=== PATIENT | male | born 1955 | race Caucasian/White ===

== ENCOUNTER 2023-02-08 11:06 | Outpatient (CLI) | payer MEDICARE, SELFPAY ==
--- NOTE | 2023-02-08 11:00 | RT.EKG_ITS ---
APPROVED REPORT Exam: Resting ECG Reason for Exam: chest discomfort Patient Location: O HR:59 bpm ECG Measurements Heart Rate 59 AXIS SD 145 P 30 QRSd 99 QRS 13 QT 407 T 41 QTc 404 Conclusion Sinus rhythm...normal P axis, V-rate 50- 99 Low voltage, extremity leads...all extremity leads <0.5mV Otherwise normal ECG
== END 2023-02-08 11:07 | disposition home or self-care (01) ==
LOC: DI.CM 11:06
PROVIDERS: Visit Provider Nurse Practitioner Family
DX: R07.89 Other chest pain (principal)
CPT/HCPCS: 93010

== ENCOUNTER 2023-02-24 03:11 | Outpatient (CLI) | payer MEDICARE, SELFPAY ==
[2023-02-24 12:43] LABS: HCT 44.6 % (40.0-50.0); HGB 15.8 g/dL (13.5-17.5); MCH 31.9 pg (27.0-33.0); MCHC 35.4 % (32.0-36.0); MCV 90 fL (80-95); MPV 10.7 fL (8.0-11.0); Platelet Count 230 10^3/uL (130-400); RBC 4.95 10^6/uL (4.36-5.78); RDW-SD 39.4 fL; WBC 7.46 10^3/uL (4.4-10.8)
[2023-02-24 13:00] LABS: ALT 29 U/L (16-63); AST 14 U/L (15-37); Albumin 3.5 g/dL (3.4-5.0); Alkaline Phosphatase 131 U/L (46-116); Anion Gap 5.4 mmol/L (3-11); BUN 17 mg/dL (7-18); Bilirubin, Total 0.5 mg/dL (0.2-1.0); CO2 30.6 mmol/L (21.0-32.0); CREATININE 0.8 mg/dL (0.70-1.30); Calcium 8.8 mg/dL (8.5-10.1); Calculated LDL 89 mg/dL (<100); Chloride 104 mmol/L (98-107); Cholesterol 135 mg/dL (<200); Glucose 107 mg/dL (74-106); HDL Cholesterol 34 mg/dL (40-60); Potassium 4.2 mmol/L (3.5-5.1); Sodium 140 mmol/L (136-145); Triglyceride 61 mg/dL (<150)
== END 2023-02-24 03:12 | disposition home or self-care (01) ==
LOC: LOS 03:12
PROVIDERS: PCP Nurse Practitioner Family; Visit Provider Family Medicine
DX: Z00.00 Encounter for general adult medical examination without abnormal findings (principal); E78.5 Hyperlipidemia, unspecified; K21.9 Gastro-esophageal reflux disease without esophagitis
CPT/HCPCS: 36415; 80053; 80061; 85027

== ENCOUNTER → 2024-02-24 09:15 | Outpatient (BNVA) | payer MEDICARE, SELFPAY | PROVIDERS: PCP Nurse Practitioner Family; Referring Provider Nurse Practitioner Family; Visit Provider Physical Therapy Assistant | DX: Z12.11 Encounter for screening for malignant neoplasm of colon (principal); Z86.010 Personal history of colon polyps ==

== ENCOUNTER 2024-02-29 05:23 | Outpatient (CLI) | payer MEDICARE, SELFPAY ==
[2024-02-29 15:33] LABS: Hemoglobin A1C 5.9 % (<5.7)
[2024-02-29 15:41] LABS: Anion Gap 5.2 mmol/L (3-11); BUN 13 mg/dL (7-18); CO2 29.8 mmol/L (21.0-32.0); Calcium 9.1 mg/dL (8.5-10.1); Chloride 105 mmol/L (98-107); Estimated GFR 81.47 (mL/min/1.73m2); Glucose 132 mg/dL (74-106); Potassium 3.9 mmol/L (3.5-5.1); Sodium 140 mmol/L (136-145)
[2024-02-29 22:50] LABS: PSA, Screening 1.8 ng/mL (<=4.5)
== END 2024-02-29 05:24 | disposition home or self-care (01) ==
PROVIDERS: PCP Nurse Practitioner Family; Visit Provider Nurse Practitioner Family
DX: Z00.00 Encounter for general adult medical examination without abnormal findings (principal); M25.512 Pain in left shoulder; R73.09 Other abnormal glucose; R35.1 Nocturia; Z12.5 Encounter for screening for malignant neoplasm of prostate
CPT/HCPCS: 36415; 80048; 84153; 83036

== ENCOUNTER 2024-03-20 06:54 | Day surgery (SDC) | payer MEDICARE, SELFPAY ==
--- NOTE | 2024-03-19 08:50 | W.PM.DSUDISC ---
Date of service: 03/20/24 Time of Service: 09:01 Discharge Plan Disposition Patient Disposition: Home Condition: Good Discharge Details Reason For Visit: screening colonoscopy Attending Provider: Andrea Duong Primary Care Provider: Irma Tarango Home Meds and New Rx's Prescriptions: Continued varicella-zoster gE-AS01B (PF) 50 mcg/0.5 mL suspension for reconstitution 0.5 ml IM ONCE Qty: 1 0RF Rx Instructions: 2 doses 2 months apart tetanus-diphtheria toxoids-Td 2-2 Lf unit/0.5 mL suspension 0.5 ml IM ONCE Qty: 0.5 0RF pantoprazole 40 mg tablet,delayed release (DR/EC) 20 mg PO DAILY Discontinued bisacodyl [Dulcolax (bisacodyl)] 5 mg tablet,delayed release (DR/EC) 5 mg PO ONCE Qty: 4 0RF Rx Instructions: Take per colonoscopy instructions provided by ordering providers office polyethylene glycol 3350 17 gram/dose powder 17 g PO ONCE Qty: 238 0RF Rx Instructions: Take per colonoscopy instructions provided by ordering providers office Discharge Instructions Instructions: Diverticulosis (GEN), Colorectal Polyps (GEN), Diverticulosis Diet (GEN) Additional Instructions: Bg, we were able to complete your colonoscopy today without much difficulty. I did find a total of 6 polyps, which I removed today without any issues. All of these polyps will be sent off for testing, and once we know the nature of the polyps, that information will inform the timing of your next colonoscopy. Usually takes about a week or 2 to get those results, and the office will be in touch as soon as we have them. Incidentally, you also have some diverticulosis. Diverticula are weak spots that occur in the muscular part of the colon wall. They can get infected or inflamed, causing quite a bit of pain usually on the left lower side of the abdomen. When this happens, we caught diverticulitis. During those occasions, patients are often times treated with antibiotics. Hopefully, years never bother you. I attached some general information here regarding typical approaches to diverticulosis. My basic recommendation is to stay well-hydrated, avoid constipation, and maintain appropriate amounts of dietary fiber. If you have any questions at all or need anything at any time, please do not hesitate to ask. 1. If tolerated, consume a soft, low fiber diet for 1-2 days. 2. Do not drive, drink alcohol, operate machinery, make critical decisions, or do activities that require coordination or balance for 24 hours. 3. Because air was put into your colon during the procedure, expelling air from your rectum (passing gas or farting) is normal. 4. You may not have a bowel movement for 1-3 days because of the colonoscopy prep. This is normal. 5. Go directly to the emergency room if you notice any of the following: Develop chills (warm to touch), or if you have a thermometer and your temperature is above 101 Difficulty breathing or difficultly swallowing Persistent vomiting Severe abdominal pain, other than gas cramps Severe chest pain Black, tarry stools Any bleeding ? exceeding one tablespoon 6. Call your physician if the site where your intravenous was started becomes red, swollen, painful, and warm to touch. 7. Your physician has reviewed your pre-procedure medications. Please continue to take those medications as previously ordered. You will be given specific information/education regarding any changes to your medications before leaving. Activity:: Activity as Tolerated Diet:: As Tolerated Discharge Orders Discharge Orders: Discharge Order (Routine); Ordered 03/19/24 Ordered By: Andrea Duong DS: Diagnosis Discharge Diagnosis (1) Encounter for screening colonoscopy: Status: Acute Asessment and Plan: Follow-up on polypectomy results
--- NOTE | 2024-03-19 08:51 | W.COLOREPORT ---
Date of service: 03/20/24 Time of Service: 09:03 Colonoscopy Report Date of procedure: 03/20/24 Pre-op diagnosis general: screening colonoscopy Post-op diagnosis procedure note: other (Diverticulosis, colorectal polyps) Procedure: colonoscopy with polypectomy Surgeon: Andrea Duong Anesthesia Type: General:No Airway Estimated blood loss (mL): 10 Pathology: other (0.25 cm cecal polyps x 2, 0.5 cm polyps at 90 cm x 2, 0.25 cm flat polyp at 70 cm, 0.5 cm rectal polyp) Complications: None Disposition: same day Indications: Bg is a 68 year old man who needs his next screening colonoscopy Prep: Miralax/Dulcolax Procedure Start Time: 08:30 Procedure End Time: 08:54 Retraction Time: 19 Findings: Extensive sigmoid diverticulosis; 0.25 cm cecal polyps x 2, 0.5 cm polyps at 90 cm x 2, 0.25 cm flat polyp at 70 cm, 0.5 cm rectal polyp Procedure Description: After the induction of anesthesia, and with the patient in left lateral decubitus position, I began by performing an external anorectal exam.? Perineum and skin were normal, as was the anal verge.? There was no evidence of external hemorrhoids.? Next, I performed a digital rectal exam.? I did not appreciate any abnormal findings.? Next, I advanced a colonoscope into the rectal vault.? I performed retroflexion.? This appeared normal.? Using insufflation, I then advanced the colonoscope beyond the rectal folds and into the sigmoid colon before advancing towards the cecum.? There is sigmoid diverticulosis.? The scope was noted to be in the cecum by identification of the ileocecal valve and appendiceal orifice.? Within the cecum were 2 polyps. Each of these was about 0.25 cm. I removed both of these polyps with cold forceps without any issues. Both of these polyps were mostly flat, but just slightly raised towards the center. I then began withdrawing the colonoscope using repeated irrigation as necessary for full evaluation of the colonic mucosa. Around 90 cm from the anus was another set of polyps. There were 2 here. Each was about 0.5 cm, and both were pedunculated. Both of these were removed with cold forceps. A flat 0.25 cm polyp was found at 70 cm. This was removed with cold forceps. Once the scope was withdrawn to the level of the rectum, great care was taken to examine portions of the rectal folds.? In the upper portion of the rectal vault was a 0.5 cm pedunculated polyp. This was removed in piecemeal with cold forceps. The remainder of the rectal vault was negative. Finally, the scope was withdrawn and the patient was brought to the same-day surgery recovery unit as the anesthetic wore off. ?The findings and instructions were shared with the patient prior to discharge. Nickerson Bowel Prep Nickerson Bowel Prep Right Colon: 3 Left Colon: 3 Transverse Colon: 3 Total Score: 9
[2024-03-20 06:57] VITALS: BP 140/90; PULSE 76; RESP 14; TEMP 36.6; O2SAT 96
[2024-03-20] MEDS: Lactated Ringers 1,000 ML 80 ML IV (07:20)
--- NOTE | 2024-03-20 07:22 | ANES.PREOP_ITS ---
General Info Date of Service Date Performed: 03/20/24 Height: 5 ft 10 in Weight: 97.8 kg Body Mass Index (BMI): 30.9 Surgical Procedure: Operation Date: 03/20/24 08:20 Proposed Procedure Side Surgeon p Colonoscopy Andrea Duong MD Meds Allergies and Home Medications Allergies Allergy/AdvReac Type Severity Reaction Status Date / Time ibuprofen Allergy Severe SKIN RASH Verified 03/20/24 07:10 blue dye Allergy Intermediate RASH; HIVES Verified 03/20/24 07:10 Home Medication Medication Instructions Recorded tetanus-diphtheria toxoids-Td 2 Lf 0.5 ml IM ONCE #0.5 mL 02/25/23 unit-2 Lf unit/0.5 mL IM suspension varicella-zoster glycoE vacc-AS01B 0.5 ml IM ONCE #1 ea 02/25/23 adj(PF) 50 mcg/0.5 mL IM susp, kit pantoprazole 40 mg tablet,delayed 20 mg PO DAILY 02/28/24 release Current Visit Medications: Current Medications Generic Name Dose Route Start Last Admin Trade Name Jarrettq PRN Reason Stop Dose Admin Ringer's Solution 1,000 mls @ 80 mls/hr 03/20/24 06:00 03/20/24 07:20 IV 03/20/24 23:59 80 mls/hr INFUSION MEHREEN Administration IV Miscellaneous Supplies 1 each 03/20/24 06:00 Iv Access IV 03/20/24 23:59 DIRECTED MEHREEN Ondansetron HCl 4 mg 03/19/24 08:52 Ondansetron 4 Mg/2 Ml Vial IVP 04/18/24 08:51 Q4H PRN PRN Nausea / Vomiting Sodium Chloride 0 ml 03/20/24 06:00 Normal Saline Flush 10 Ml Syr IV 03/20/24 23:59 PRN PRN Sodium Chloride 0 ml 03/20/24 06:00 Normal Saline 10 Ml Vial IJ 03/20/24 23:59 DIRECTED PRN Sterile Water 0 ml 03/20/24 06:00 Water,Injection,Sterile 10 Ml Vial IJ 03/20/24 23:59 DIRECTED PRN PFSH Active Problems Active Problems: Problem Status Onset Code Encounter for screening colonoscopy Z12.11 Nocturia R35.1 Left shoulder pain M25.512 Developmental reading disorder F81.0 Elevated blood pressure reading in office without diagnosis of hypertension R03.0 Gastroesophageal reflux disease K21.9 Medical History Medical History Varicose veins of lower extremity LEFT LEG; SUPERFICIAL Sciatica recurrent; right sided Polyp of colon tubular adenoma x 3; repeat in 2013 History of tobacco use Erectile disorder due to medical condition in male (11/29/15) Carpal tunnel syndrome right wrist -repair Benign non-nodular prostatic hyperplasia with lower urinary tract symptoms (11/29/15) Surgical History Surgical History Status post hernia repair Status post carpal tunnel release Tobacco Smoking/Tobacco Use Status: Former Tobacco Use Passive smoking exposure: No Second hand exposure: Yes Alcohol Alcohol Intake: former Substance Use Substance use: Daily Substance use type: marijuana Vital Signs and Lab Results Vital Signs Most Recent Vital Signs in EMR: Most Recent Vital Signs Temp Pulse Resp BP Pulse Ox 36.6 C 76 14 140/90 96 03/20/24 06:57 03/20/24 06:57 03/20/24 06:57 03/20/24 06:57 03/20/24 06:57 Lab Results Blood Type / Crossmatch: 2 No Data to Display Complete Blood Count: 2 No Data to Display Complete Metabolic Panel: 2 Sodium 140 mmol/L (136-145) 02/29/24 14:31 Potassium 3.9 mmol/L (3.5-5.1) 02/29/24 14:31 Chloride 105 mmol/L (98-107) 02/29/24 14:31 Carbon Dioxide 29.8 mmol/L (21.0-32.0) 02/29/24 14:31 BUN 13 mg/dL (7-18) 02/29/24 14:31 Creatinine 1.0 mg/dL (0.70-1.30) 02/29/24 14:31 Est GFR (CKD-EPI 2020) 81.47 (mL/min/1.73m2) 02/29/24 14:31 Calcium 9.1 mg/dL (8.5-10.1) 02/29/24 14:31 Glucose 132 mg/dL (74-106) H 02/29/24 14:31 Hemoglobin A1c 5.9 % (<5.7) H 02/29/24 14:31 Liver Function Panel: 2 No Data to Display Coagulation Panel: 2 No Data to Display Cardiac Panel: 2 No Data to Display Arterial Blood Gas: 2 No Data to Display Venous Blood Gas: 2 No Data to Display Pancreas Panel: 2 No Data to Display Thyroid Panel: 2 No Data to Display Infectious Disease: 2 No Data to Display Blood Cultures: 2 No Data to Display Toxicology Panel: 2 No Data to Display Anesthesia Assessment and Plan Anesthesia History Personal History: No History of Anesthesia Complications Family History: No Family History of Anesthesia Complications Exercise Tolerance Exercise Tolerance: Metabolic Equivalents>4 Pertinent Negatives Pertinent Negatives: No Symptoms of GERD Cardiac & Pulmonary Exam Cardiac Exam: Normal S1/S2 Heart Sounds Pulmonary Exam: Clear Bilateral Breath Sounds Implantable Cardiac Device Does patient have a Pacemaker or an ICD?: No Airway Exam Known Difficult Airway: No Mallampati Class: 4 Mouth Opening: Normal (> 3cm) Thyromental Distance: Greater than 3 cm Neck Range of Motion: Full ROM Neck Circumference: Normal Teeth Condition: Normal Dentition Tooth Numberin 1. Teeth remaining 2. One broken molar in this region Airway Comments: Upper edentulous, ASA Classification ASA Score: ASA 3 Emergency Case?: No NPO Status NPO Status: NPO Clears >2 hours, Solids >8 hours Anesthesia Plan Resuscitation Status: Full Code Anesthesia Technique: General Anesthesia Airway Planned: Natural Airway Monitors Used: Standard Monitors
[2024-03-20 07:23] VITALS: BMI 30.9
--- NOTE | 2024-03-20 08:39 | BOWEL_PTH ---
PATIENT: Bg Matthew LOC: [facility] U#:[id number] AGE/SX: 68/M ROOM: RE03/20/[address]: Andrea Duong MD : [id number] BED: DIS: 03/20/2024 SPEC #: [id number] RECD: 03/20/24 12:48 STATUS: SAFIA RESimona #: [id number] RINA: 03/20/24 08:[address]: Andrea Duong DEPT: Surgical Specimen RECD BY: Carolina Corea ENTERED: 03/20/24 12:51 SP TYPE: Bowel OTHR DR: Irma Tarango, HEALTH PROFESSOR Tissues: 1 - BIOPSY BOWEL 2 - BIOPSY BOWEL 3 - BIOPSY BOWEL 4 - BIOPSY BOWEL Procedures: GROSS AND MICRO LEVEL 4 Comments: [id number]
[2024-03-20 08:58] VITALS: BP 121/84; PULSE 76; RESP 16; TEMP 36.7; O2SAT 96
--- NOTE | 2024-03-20 09:09 | W.ANESPOSTOP ---
Postoperative Evaluation Date, Time and Location Date Performed: 03/20/24 Time Performed: 09:09 Patient Location: Day Surgery Unit Vital Signs Most Recent Imported Vital Signs: Most Recent Vital Signs Temp Pulse Resp BP Pulse Ox 36.7 C 76 16 121/84 96 03/20/24 08:58 03/20/24 08:58 03/20/24 08:58 03/20/24 08:58 03/20/24 08:58 Pain Score Most Recent Pain Score: Most Recent Pain Score Pain Level 0 03/20/24 08:58 Assessment Mental Status: Awake (Alert & Oriented to Patient Baseline) Airway and Respiratory Function: Patent airway with normal (patient baseline) respiratory exam Cardiovascular Function: Hemodynamically Stable Hydration Status: Adequately Hydrated Nausea & Vomiting: No Nausea or Vomiting Pain: Pt. Denies Any Pain Peripheral Nerve Block: Patient did not receive a nerve block
[2024-03-20 09:34] VITALS: BP 126/84; PULSE 72; RESP 16; TEMP 36; O2SAT 96
== END 2024-03-20 09:40 | disposition home or self-care (01) ==
LOC: SUR 06:54
PROVIDERS: PCP Nurse Practitioner Family; Visit Provider Surgery
PROC: 0DJD8ZZ Inspection of Lower Intestinal Tract, Via Natural or Artificial Opening Endoscopic (ICD-10-PCS; CPT 45378; principal; 2024-03-20 08:15)
DX: Z12.11 Encounter for screening for malignant neoplasm of colon (principal); D12.4 Benign neoplasm of descending colon; K57.30 Diverticulosis of large intestine without perforation or abscess without bleeding; D12.3 Benign neoplasm of transverse colon
CPT/HCPCS: 45380; 88305; J2704

== ENCOUNTER 2024-08-14 01:28 | Outpatient (CLI) | payer MEDICARE, SELFPAY ==
--- NOTE | 2024-08-14 08:10 | DI.CT_ITS ---
Exam(s) CT UPPER EXTREMITY LT WO EXAM: CT UPPER EXTREMITY LT WO CLINICAL HISTORY: continued left shoulder pain,m25.512. TECHNIQUE: Imaging Protocol: Axial computed tomography images with coronal and sagittal reformatted images were created and reviewed. COMPARISON: There are no priors for comparison. FINDINGS: Bones: The osseous structures and articular surfaces are intact. Bony alignment is satisfactory. N o cellulitic or osteomyelitic changes are identified. There are mild degenerative changes seen at th e acromioclavicular joint. The glenohumeral joint is well maintained. Subchondral cysts are seen in the greater and lesser tuberosities. No lytic or sclerotic lesions are identified. Soft Tissues: There is a calcified granuloma in the left upper lobe. No noncalcified suspicious pulm onary nodules are seen. No infiltrates are seen. No evidence of a pneumothorax is seen in the visua lized lung. Atherosclerotic calcification is seen of the aortic arch. IMPRESSION: 1. Mild degenerative changes are seen in the acromioclavicular joint. 2. If there is concern for internal derangement, an MRI should be considered for further evaluation. RADIATION DOSE DELIVERED: 221.73mGy.cm Total DLP 221.73mGy.cm Total DLP DATA REPOSITORY: All CT scans at this facility are submitted to the National Radiology Data Registry (NRDR) Dose Index Registry (DIR) with the [employer] (A[employer]). RADIATION OPTIMIZATION: All CT scans at this facility use at least one of these dose optimization te chniques: automated exposure control; mA and/or kV adjustment per patient size (includes targeted exa ms where dose is matched to clinical indication); or iterative reconstruction.
== END 2024-08-14 01:48 ==
PROVIDERS: PCP Nurse Practitioner Family; Visit Provider Nurse Practitioner Family
DX: M25.512 Pain in left shoulder (principal)
CPT/HCPCS: 73200